=== PATIENT | male | born 1960 | race Two or more races ===

== ENCOUNTER → 2017-12-17 | Outpatient (CLI) | payer BC, OTHER ==
[~2017-12-17] MED LIST: ASPIRIN PO; COREG PO; DIOVAN PO; OMEPRAZOLE PO; REGADENOSON 0.4 MG/5 ML SYRINGE ONE; ROSU40TA PO
== END | disposition home or self-care (01) ==
LOC: CFH 07:09
PROVIDERS: ATTEND Internal Medicine Cardiovascular Disease
DX: I21.19 ST elevation (STEMI) myocardial infarction involving other coronary artery of inferior wall (principal); I25.89 Other forms of chronic ischemic heart disease; I25.10 Atherosclerotic heart disease of native coronary artery without angina pectoris; I10 Essential (primary) hypertension
CPT/HCPCS: 78452; 93017; A9502; J2785

== ENCOUNTER 2021-04-14 07:49 | Outpatient (CLI) | payer BC ==
[2021-05-22] MEDS ORDERED: CARV80CP PO (10:34)
[2021-05-22] MEDS ORDERED: LOSA25TA25 PO (10:34)
[2021-05-22] MEDS ORDERED: CHOL10003 PO (10:34)
[2021-05-22] MEDS ORDERED: ASPI81TA45 PO (10:34)
[2021-05-22] MEDS ORDERED: MULT-249 PO (10:34)
== END 2021-04-15 23:59 | disposition home or self-care (01) ==
LOC: CFH 07:49
PROVIDERS: ATTEND Internal Medicine Cardiovascular Disease
DX: I25.89 Other forms of chronic ischemic heart disease (principal); I25.10 Atherosclerotic heart disease of native coronary artery without angina pectoris; I10 Essential (primary) hypertension; I25.2 Old myocardial infarction; I21.19 ST elevation (STEMI) myocardial infarction involving other coronary artery of inferior wall
CPT/HCPCS: 78452; 93017; A9502; J2785

== ENCOUNTER 2021-05-22 09:49 | Inpatient (IN) | payer BC ==
[~2021-05-22] VITALS: Ht 167.6 cm; Wt 118.8 kg
[2021-05-28 09:09] VITALS: BP 125/74
== END 2021-05-28 10:45 | disposition home or self-care (01) | DRG 234 ==
LOC: CACL 09:49 → ORIP 15:44 → 5SO 16:29 → CACL 17:49 → 5SO 17:54 → CCU 05-23 09:29 → 5SO 05-24 13:40
PROVIDERS: ADMIT Thoracic Surgery (Cardiothoracic Vascular Surgery); ATTEND Thoracic Surgery (Cardiothoracic Vascular Surgery)
PROC: 4A023N7 Measurement of Cardiac Sampling and Pressure, Left Heart, Percutaneous Approach (ICD-10-PCS; principal; 2021-05-22)
PROC: B2111ZZ Fluoroscopy of Multiple Coronary Arteries using Low Osmolar Contrast (ICD-10-PCS; 2021-05-22)
PROC: 02100Z9 Bypass Coronary Artery, One Artery from Left Internal Mammary, Open Approach (ICD-10-PCS; 2021-05-23)
PROC: 0211093 Bypass Coronary Artery, Two Arteries from Coronary Artery with Autologous Venous Tissue, Open Approach (ICD-10-PCS; 2021-05-23)
PROC: 06BQ4ZZ Excision of Left Saphenous Vein, Percutaneous Endoscopic Approach (ICD-10-PCS; 2021-05-23)
PROC: 5A1221Z Performance of Cardiac Output, Continuous (ICD-10-PCS; 2021-05-23)
PROC: 3E080GC Introduction of Other Therapeutic Substance into Heart, Open Approach (ICD-10-PCS; 2021-05-23)
PROC: B24CZZ4 Ultrasonography of Pericardium, Transesophageal (ICD-10-PCS; 2021-05-23)
DX: I25.10 Atherosclerotic heart disease of native coronary artery without angina pectoris (principal); I25.82 Chronic total occlusion of coronary artery; D72.829 Elevated white blood cell count, unspecified; Z20.822 Contact with and (suspected) exposure to COVID-19
CPT/HCPCS: 36415; 36600; 93454; J3490; S0017